=== PATIENT | female | born 1975 | race Caucasian/White ===

== ENCOUNTER 2021-07-09 05:50 | Inpatient (IN) | payer OTHER ==
[2021-07-08 11:33] LABS: COVID AG,FIA SOURCE NASOPHARYNGEAL
[2021-07-08 11:38] LABS: EOSINOPHILS % (AUTO) 0.6 % (1.0-6.0); HEMATOCRIT 44.4 % (36-46); HEMOGLOBIN 14.9 g/dL (12.0-16.0); LYMPHOCYTES # (AUTO) 2.3 K/uL (1.0-4.8); LYMPHOCYTES % (AUTO) 30.4 % (22.0-44.0); MEAN CORPUSCULAR HGB CONC 33.5 G/dL (31.0-37.0); MEAN CORPUSCULAR VOLUME 90 fL (80-100); MONOCYTES # (AUTO) 0.6 K/uL (0.1-1.0); MONOCYTES % (AUTO) 8.1 % (2.0-9.0); NEUTROPHILS # (AUTO) 4.5 K/uL (1.8-7.7); NEUTROPHILS % (AUTO) 59.9 % (40.0-70.0); PLATELET COUNT (AUTO) 247 K/uL (150-450); RED BLOOD CELL COUNT(AUTO) 4.95 MIL/uL (4.00-5.20); RED CELL DISTRIBUTION WIDTH 12.8 % (11.5-14.5)
[2021-07-08 11:47] LABS: ANION GAP 11 mmol/L (8-16); CALCIUM, TOTAL 8.9 mg/dL (8.8-10.5); CARBON DIOXIDE 25 mmol/L (22-29); CHLORIDE 104 mmol/L (98-107); CREATININE 0.67 mg/dL (0.60-1.30); GLOMERULAR FILTR. RATE CALC > 60 mL/min (>60); GLUCOSE,RANDOM 86 mg/dL (70-110); POTASSIUM 3.8 mmol/L (3.5-5.1); SODIUM SERUM 140 mmol/L (136-145); UREA NITROGEN, BLOOD 10 mg/dL (7-18)
[2021-07-08 11:51] LABS: PROTHROMBIN TIME 10.7 SEC (9.4-11.6)
[2021-07-08 12:00] LABS: HCG,QUANTITATIVE < 1 mIU/mL (0-6)
[~2021-07-09] VITALS: Ht 157.5 cm; Wt 79.1 kg
[~2021-07-09 05:50] MED LIST: RINGERS SOLUTION,LACTATED 1,000 ML IV ONE
[2021-07-09] MEDS ORDERED: RINGERS SOLUTION,LACTATED 1,000 ML IV ONE (05:56)
[2021-07-09] MEDS ORDERED: BUPIVACAINE HCL/PF 0.5% 30 ML VIAL ONE (06:36)
[2021-07-09] MEDS ORDERED: BUPIVACAINE LIPOSOME/PF 1.3%-13.3MG/ML SUSPENSION 20 ML VIAL INJ ONE (06:45)
[2021-07-09] MEDS ORDERED: SUGAMMADEX SODIUM 200 MG/2 ML VIAL IVP ONE (08:39)
[2021-07-09] MEDS ORDERED: FentaNYL CITRATE PF 100 MCG/2 ML VIAL IVP PRN (08:45)
[2021-07-09] MEDS ORDERED: HYDROmorphone 2 MG/ML VIAL IVP PRN ×2 (08:45)
[2021-07-09] MEDS ORDERED: MEPERIDINE-PF 25 MG/ML VIAL IVP PRN (08:45)
[2021-07-09 09:52] VITALS: BP 125/78
[2021-07-09] MEDS: CYCLOBENZAPRINE HCL 10 MG TABLET PO SCH ×3 (10:06→20:33)
[2021-07-09] MEDS ORDERED: MIDAZOLAM HCL 2 MG/2 ML VIAL IVP ONE (12:00)
[2021-07-09] MEDS ORDERED: KETAMINE HCL 50 MG/ML 10 ML VIAL IVP ONE (12:00)
[2021-07-09] MEDS ORDERED: FentaNYL CITRATE PF 100 MCG/2 ML VIAL IVP ONE (12:00)
[2021-07-09] MEDS: OxyCODONE HCL/ACETAMINOPHEN 5-325 MG TABLET PO PRN (12:46)
[2021-07-09] MEDS ORDERED: SODIUM CHLORIDE 0.9% 500 ML IV ONE (15:13)
[2021-07-09 15:26] VITALS: BP 111/65
[2021-07-09] MEDS: CeFAZolin 2 GM/DEXTROSE 50 ML IV SCH ×2 (15:27→23:14)
[2021-07-09] MEDS ORDERED: OXYGEN THERAPY IH SCH (20:00)
[2021-07-09 20:04] VITALS: BP 117/71
[2021-07-10 03:54] VITALS: BP 112/69
[2021-07-10] MEDS: CeFAZolin 2 GM/DEXTROSE 50 ML IV SCH (06:47)
[2021-07-10 07:00] LABS: BASOPHILS % (AUTO) 0.1 % (0.0-2.0); EOSINOPHILS % (AUTO) 0 % (1.0-6.0); HEMATOCRIT 40.1 % (36-46); HEMOGLOBIN 13.2 g/dL (12.0-16.0); LYMPHOCYTES # (AUTO) 1.9 K/uL (1.0-4.8); LYMPHOCYTES % (AUTO) 10.4 % (22.0-44.0); MEAN CORPUSCULAR HEMOGLOBIN 29.6 pg (26.0-34.0); MEAN CORPUSCULAR HGB CONC 32.9 G/dL (31.0-37.0); MEAN CORPUSCULAR VOLUME 90 fL (80-100); MONOCYTES % (AUTO) 5.5 % (2.0-9.0); PLATELET COUNT (AUTO) 224 K/uL (150-450); RED BLOOD CELL COUNT(AUTO) 4.46 MIL/uL (4.00-5.20); RED CELL DISTRIBUTION WIDTH 12.7 % (11.5-14.5)
[2021-07-10 07:22] LABS: ANION GAP 10 mmol/L (8-16); CALCIUM, TOTAL 8.9 mg/dL (8.8-10.5); CARBON DIOXIDE 25 mmol/L (22-29); CHLORIDE 107 mmol/L (98-107); CREATININE 0.51 mg/dL (0.60-1.30); GLOMERULAR FILTR. RATE CALC > 60 mL/min (>60); GLUCOSE,RANDOM 104 mg/dL (70-110); POTASSIUM 4.2 mmol/L (3.5-5.1); SODIUM SERUM 142 mmol/L (136-145); UREA NITROGEN, BLOOD 11 mg/dL (7-18)
[2021-07-10 08:22] VITALS: BP 115/77
[2021-07-10] MEDS ORDERED: DOCUSATE SODIUM 100 MG CAPSULE PO SCH (09:00)
[2021-07-10] MEDS: CYCLOBENZAPRINE HCL 10 MG TABLET PO SCH ×2 (09:10→09:15)
[2021-07-10] MEDS: OxyCODONE HCL/ACETAMINOPHEN 5-325 MG TABLET PO PRN (09:17)
[2021-07-10 15:05] LABS: APPEARANCE,URINE CLOUDY (CLEAR); BILIRUBIN,URINE NEGATIVE (NEGATIVE); GLUCOSE, URINE (UA) NEGATIVE (NEGATIVE); KETONES,URINE TRACE mg/dL (NEGATIVE); LEUKOCYTE ESTERASE ,URINE NEGATIVE (NEGATIVE); NITRATE,URINE NEGATIVE (NEGATIVE); OCCULT BLOOD,URINE NEGATIVE (NEGATIVE); PROTEIN,URINE TRACE (NEGATIVE); UROBILINOGEN,URINE 0.2 mg/dL (<=1.0)
[2021-07-10 15:46] LABS: BACTERIA,URINE Few /HPF (None Seen); RBC,URINE 0-2 /HPF (0-2); SQUAMOUS EPITHELIAL CELL,UR Moderate /LPF (None Seen); WBC,URINE 0-2 /HPF (0-5)
[2021-07-10 15:47] LABS: CALCIUM OXALATE CRYSTALS,UR Moderate /LPF (None Seen)
[2021-07-10] MEDS ORDERED: ONDANSETRON HCL 4 MG/2 ML VIAL IVP ONE (16:49)
[2021-07-10] MEDS ORDERED: METOCLOPRAMIDE HCL 5 MG/ML 2 ML VIAL IVP ONE (16:49)
[2021-07-10] MEDS ORDERED: LIDOCAINE/PF 2% 5 ML SYRINGE IVP ONE (16:49)
[2021-07-10] MEDS ORDERED: CefoTEtan DISODIUM 1 GM/VIAL IVP ONE (16:49)
[2021-07-10] MEDS ORDERED: ROCURONIUM BROMIDE 10 MG/ML 5 ML VIAL IVP ONE (16:49)
[2021-07-10] MEDS ORDERED: ACETAMINOPHEN/ISO-OSM 1000 MG/100 ML BOTTLE IV ONE (16:49)
[2021-07-10] MEDS ORDERED: PROPOFOL 1% 20 ML VIAL IVP ONE (16:49)
[2021-07-10] MEDS ORDERED: SUGAMMADEX SODIUM 200 MG/2 ML VIAL IVP ONE (16:49)
[2021-07-10] MEDS ORDERED: DEXAMETHASONE SOD PHOS 4 MG/ML VIAL IVP ONE (16:49)
== END 2021-07-10 16:50 | disposition home or self-care (01) | DRG 460 ==
LOC: 6S 05:50 → INTOOBSV 05:50 → OBSVTOIN 05:50
PROVIDERS: ADMIT Orthopaedic Surgery; ATTEND Orthopaedic Surgery
PROC: 0SG30A0 Fusion of Lumbosacral Joint with Interbody Fusion Device, Anterior Approach, Anterior Column, Open Approach (ICD-10-PCS; principal; 2021-07-10)
PROC: 0ST40ZZ Resection of Lumbosacral Disc, Open Approach (ICD-10-PCS; 2021-07-10)
PROC: 01NB0ZZ Release Lumbar Nerve, Open Approach (ICD-10-PCS; 2021-07-10)
PROC: 01NR0ZZ Release Sacral Nerve, Open Approach (ICD-10-PCS; 2021-07-10)
PROC: 00NY0ZZ Release Lumbar Spinal Cord, Open Approach (ICD-10-PCS; 2021-07-10)
DX: M48.07 Spinal stenosis, lumbosacral region (principal); M43.17 Spondylolisthesis, lumbosacral region; D72.829 Elevated white blood cell count, unspecified; E66.3 Overweight; M54.17 Radiculopathy, lumbosacral region; Z20.822 Contact with and (suspected) exposure to COVID-19; M53.2X7 Spinal instabilities, lumbosacral region; Z68.31 Body mass index [BMI] 31.0-31.9, adult; Z79.899 Other long term (current) drug therapy
CPT/HCPCS: 80048; 81001; 84702; 85025; 85610; 85730; 87081; 93005; 97161; 97162; 97165; 97530; 97535; 99219; C9290; J0131; J0690; J1100; J2250; J2405; J2704; J2765; J3010; J3490; J7040; J7120; Q9967